=== PATIENT | male | born 1990 | race Caucasian/White ===

== ENCOUNTER 2018-08-12 18:52 | Emergency (ER) | payer OTHER ==
[~2018-08-12] VITALS: Ht 175.3 cm; Wt 108.0 kg
[~2018-08-12 18:52] MED LIST: AUGMENTIN875TAB PO; NAPROSYN500 MG OR; NO; NO MEDS; ULTRAM50 M1 OR
--- NOTE | 2018-08-12 19:30 | NUR ---
BREATHING TREATMENT GIVEN. BREATHING TECH. FOR GOOD DEPOSITION TO THE LUNGS.
[2018-08-12] MEDS ORDERED: MEDDOSEPAK PO (20:43)
[2018-08-12] MEDS ORDERED: TESSALON PER100 MG PO (20:43)
[2018-08-12 20:48] VITALS: BP 113/57
== END 2018-08-12 20:48 | disposition home or self-care (01) | DRG 204 ==
LOC: ED 18:52
DX: R05 Cough (principal)

== ENCOUNTER 2019-03-03 16:18 | Emergency (ER) | payer OTHER ==
[~2019-03-03] VITALS: Ht 172.7 cm; Wt 109.1 kg
[~2019-03-03 16:18] MED LIST changes: +MEDDOSEPAK PO; +TESSALON PER100 MG PO
[2019-03-03 17:01] LABS: HEMATOCRIT 47.2 % (39.0-50.0); HEMOGLOBIN 16.3 g/dl (14.0-18.0); IMMATURE GRANULOCYTES 0.3 % (0.0-5.0); MEAN CELL VOLUME 84.7 fL CALC (80.0-100.0); MEAN CORPUSCULAR HGB 29.3 pG CALC (26.0-32.0); MEAN CORPUSCULAR HGB CONC 34.5 g/L CALC (32.0-36.0); NEUT# 4.58 thou/uL (1.82-7.42); RED BLOOD COUNT 5.57 mill/uL (4.70-6.10); RED CELL DISTRI WIDTH 11.9 % (11.5-15.5)
[2019-03-03 17:15] LABS: ALBUMIN 5.1 g/dL (3.2-5.0); ALKALINE PHOSPHATASE 82 u/l (38-126); BUN 14 mg/dL (9-20); BUN/CREATININE RATIO 14 (12-20 (CALC)); CARBON DIOXIDE 23 mmol/l (22-30); CHLORIDE 105 mmol/l (95-108); GFR > 60 ML/MIN (>=60 (CALC)); GFR FOR AFR.AMER. > 60 ML/MIN (>=60 (CALC)); LIPASE 278 u/l (23-300); SODIUM 140 mmol/l (137-146); TOTAL PROTEIN 8.4 g/dL (6.3-8.2)
[2019-03-03 17:16] LABS: ANION GAP 17 (6-22 (CALC)); BILIRUBIN, TOTAL 0.7 mg/dL (0.0-1.4); POTASSIUM 4.8 mmol/l (3.5-5.1); SGOT/AST 100 u/l (17-59)
[2019-03-03 19:13] LABS: URINE BILIRUBIN - DIPSTICK NEGATIVE (NEGATIVE); URINE BLOOD DIPSTICK NEGATIVE (NEGATIVE); URINE COLOR YELLOW; URINE GLUCOSE - DIPSTICK NEGATIVE (NEGATIVE); URINE KETONE 40 mg/dL (NEGATIVE); URINE LEUK ESTERASE NEGATIVE (NEGATIVE); URINE NITRITE - DIPSTICK NEGATIVE (Negative); URINE PH 5.5 (4.5-8.0); URINE PROTEIN - DIPSTICK NEGATIVE (NEG-TRACE); URINE SPECIFIC GRAVITY >=1.030; URINE UROBILINOGEN - DIPSTICK 0.2 E.U./dL (0.2)
[2019-03-03 19:15] LABS: BARBITURATES NEGATIVE (NEGATIVE); COCAINE NEGATIVE (NEGATIVE); METHADONE NEGATIVE (NEGATIVE); OXCYCODONE NEGATIVE (NEGATIVE); TETRAHYDROCANNABIONOL POSITIVE (NEGATIVE); TRICYLIC ANTIDEPRESSANTS NEGATIVE (NEGATIVE)
[2019-03-03 19:38] VITALS: BP 137/73
[2019-03-03] MEDS ORDERED: REGLAN10 MG PO (19:44)
== END 2019-03-03 19:51 | disposition home or self-care (01) | DRG 392 ==
LOC: ED 16:18
DX: R11.0 Nausea (principal); R10.11 Right upper quadrant pain; R10.31 Right lower quadrant pain; R10.32 Left lower quadrant pain; R19.7 Diarrhea, unspecified

== ENCOUNTER 2019-05-16 12:11 | Emergency (ER) | payer OTHER ==
[~2019-05-16] VITALS: Ht 172.7 cm; Wt 97.0 kg
[~2019-05-16 12:11] MED LIST changes: +REGLAN10 MG PO
[2019-05-16] MEDS ORDERED: OMEPRAZOLE10 MG PO (12:46)
[2019-05-16 12:47] LABS: HEMATOCRIT 44.6 % (39.0-50.0); HEMOGLOBIN 15.4 g/dl (14.0-18.0); IMMATURE GRANULOCYTES 0.4 % (0.0-5.0); MEAN CELL VOLUME 86.8 fL CALC (80.0-100.0); MEAN CORPUSCULAR HGB CONC 34.5 g/L CALC (32.0-36.0); NEUT# 5.09 thou/uL (1.82-7.42); RED BLOOD COUNT 5.14 mill/uL (4.70-6.10)
[2019-05-16] MEDS ORDERED: DICYCLOMINE HCL20 MG PO (12:48)
[2019-05-16 13:00] LABS: ALBUMIN 4.4 g/dL (3.2-5.0); ALKALINE PHOSPHATASE 76 u/l (38-126); ANION GAP 13 (6-22 (CALC)); BILIRUBIN, TOTAL 0.6 mg/dL (0.0-1.4); BUN 13 mg/dL (9-20); BUN/CREATININE RATIO 13 (12-20 (CALC)); CARBON DIOXIDE 26 mmol/l (22-30); CHLORIDE 103 mmol/l (95-108); GFR > 60 ML/MIN (>=60 (CALC)); GFR FOR AFR.AMER. > 60 ML/MIN (>=60 (CALC)); LIPASE 136 u/l (23-300); POTASSIUM 4.1 mmol/l (3.5-5.1); SGOT/AST 28 u/l (17-59); SODIUM 138 mmol/l (137-146); TOTAL PROTEIN 7.5 g/dL (6.3-8.2)
[2019-05-16 13:08] LABS: URINE BILIRUBIN - DIPSTICK NEGATIVE (NEGATIVE); URINE BLOOD DIPSTICK NEGATIVE (NEGATIVE); URINE COLOR YELLOW; URINE GLUCOSE - DIPSTICK NEGATIVE (NEGATIVE); URINE KETONE NEGATIVE (NEGATIVE); URINE LEUK ESTERASE NEGATIVE (NEGATIVE); URINE NITRITE - DIPSTICK NEGATIVE (Negative); URINE PH 5.5 (4.5-8.0); URINE PROTEIN - DIPSTICK NEGATIVE (NEG-TRACE); URINE UROBILINOGEN - DIPSTICK 0.2 E.U./dL (0.2)
[2019-05-16 13:23] LABS: BARBITURATES NEGATIVE (NEGATIVE); COCAINE NEGATIVE (NEGATIVE); METHADONE NEGATIVE (NEGATIVE); OXCYCODONE NEGATIVE (NEGATIVE); TETRAHYDROCANNABIONOL NEGATIVE (NEGATIVE); TRICYLIC ANTIDEPRESSANTS NEGATIVE (NEGATIVE)
[2019-05-16] MEDS ORDERED: AMOXICILLIN500 M2 PO (13:24)
[2019-05-16 13:34] VITALS: BP 133/77
== END 2019-05-16 13:36 | disposition home or self-care (01) | DRG 153 ==
LOC: ED 12:11
DX: J02.0 Streptococcal pharyngitis (principal); R10.32 Left lower quadrant pain; R10.11 Right upper quadrant pain

== ENCOUNTER 2021-01-25 00:20 | Emergency (ER) | payer SELFPAY ==
[~2021-01-25 00:20] MED LIST changes: +AMOXICILLIN500 M2 PO; +DICYCLOMINE HCL20 MG PO; +OMEPRAZOLE10 MG PO
== END 2021-01-25 02:07 | disposition left against medical advice (07) | DRG 951 ==
LOC: ED 00:20 → LWOBS 00:46
DX: Z53.21 Procedure and treatment not carried out due to patient leaving prior to being seen by health care provider (principal)

== ENCOUNTER 2021-01-26 13:12 | Observation (INO) | payer OTHER ==
[~2021-01-26] VITALS: Ht 170.2 cm; Wt 88.0 kg
--- NOTE | 2021-01-26 13:30 | NUR ---
PATIENT TO ROOM VIA WHEELCHAIR AND PHYSICIAN NOTIFIED OF PATIENT STATUS
[2021-01-26 14:12] LABS: IMMATURE GRANULOCYTES 0.7 % (0.0-5.0); MEAN CELL VOLUME 88.3 fL CALC (80.0-100.0); MEAN CORPUSCULAR HGB 30.6 pG CALC (26.0-32.0); MEAN CORPUSCULAR HGB CONC 34.6 g/dL CAL (32.0-36.0); NEUT# 6.28 thou/uL (1.82-7.42); RED BLOOD COUNT 5.99 mill/uL (4.70-6.10); RED CELL DISTRI WIDTH 11.7 % (11.5-15.5)
[2021-01-26 14:13] LABS: HEMATOCRIT 52.9 % (39.0-50.0); HEMOGLOBIN 18.3 g/dl (14.0-18.0)
[2021-01-26 14:22] LABS: ALBUMIN 5.1 g/dL (3.2-5.0); ALKALINE PHOSPHATASE 92 u/l (38-126); ANION GAP 23 (6-22 (CALC)); BILIRUBIN, TOTAL 0.8 mg/dL (0.0-1.4); BUN 18 mg/dL (9-20); BUN/CREATININE RATIO 15 (12-20 (CALC)); CARBON DIOXIDE 22 mmol/l (22-30); CHLORIDE 98 mmol/l (95-108); CREATININE 1.2 mg/dL (0.7-1.3); GFR > 60 ML/MIN (>=60 (CALC)); GFR FOR AFR.AMER. > 60 ML/MIN (>=60 (CALC)); LIPASE 137 u/l (23-300); POTASSIUM 3.7 mmol/l (3.5-5.1); SGOT/AST 160 u/l (17-59); SODIUM 139 mmol/l (137-146); TOTAL PROTEIN 9.1 g/dL (6.3-8.2)
--- NOTE | 2021-01-26 15:03 | NUR ---
PT MEDICATED FOR CONTINUED N/V
[2021-01-26 17:02] LABS: BILIRUBIN, TOTAL 0.8 mg/dL (0.0-1.4); TOTAL PROTEIN 9.3 g/dL (6.3-8.2)
--- NOTE | 2021-01-26 20:49 | NUR ---
REPORT CALLED TO [facility]
--- NOTE | 2021-01-26 21:32 | NUR ---
TO FLOOR VIA STRETCHER/POCKET MONITOR. MASKED.
[2021-01-26 21:40] VITALS: BP 160/88
--- NOTE | 2021-01-26 21:40 | NUR ---
pATIENT ARRIVED TO UNIT. VITALS TAKEN AND RECOREDED, PARIENT AMBULATING AND REQUESTING WATER
[2021-01-26 23:30] VITALS: BP 132/87
[2021-01-27 00:45] LABS: URINE BILIRUBIN - DIPSTICK NEGATIVE (NEGATIVE); URINE BLOOD DIPSTICK NEGATIVE (NEGATIVE); URINE COLOR YELLOW; URINE GLUCOSE - DIPSTICK 100 mg/dL (NEGATIVE); URINE KETONE 40 mg/dL (NEGATIVE); URINE LEUK ESTERASE NEGATIVE (NEGATIVE); URINE NITRITE - DIPSTICK NEGATIVE (Negative); URINE PROTEIN - DIPSTICK TRACE mg/dL (NEG-TRACE)
[2021-01-27 04:27] VITALS: BP 134/81
[2021-01-27 05:37] LABS: IMMATURE GRANULOCYTES 0.4 % (0.0-5.0); MEAN CELL VOLUME 89.5 fL CALC (80.0-100.0); MEAN CORPUSCULAR HGB 30.8 pG CALC (26.0-32.0); MEAN CORPUSCULAR HGB CONC 34.4 g/dL CAL (32.0-36.0); NEUT# 3.02 thou/uL (1.82-7.42); RED BLOOD COUNT 5.23 mill/uL (4.70-6.10); RED CELL DISTRI WIDTH 11.8 % (11.5-15.5)
[2021-01-27 05:41] LABS: HEMATOCRIT 46.8 % (39.0-50.0); HEMOGLOBIN 16.1 g/dl (14.0-18.0)
[2021-01-27 06:05] LABS: ALBUMIN 4.1 g/dL (3.2-5.0); ALKALINE PHOSPHATASE 65 u/l (38-126); BILIRUBIN, TOTAL 0.5 mg/dL (0.0-1.4); BUN 13 mg/dL (9-20); BUN/CREATININE RATIO 13 (12-20 (CALC)); C-REACTIVE PROTEIN 1.1 mg/dL (0-0.9); CHLORIDE 101 mmol/l (95-108); GFR > 60 ML/MIN (>=60 (CALC)); GFR FOR AFR.AMER. > 60 ML/MIN (>=60 (CALC)); POTASSIUM 3.8 mmol/l (3.5-5.1); SGOT/AST 74 u/l (17-59); SODIUM 138 mmol/l (137-146)
[2021-01-27 06:15] LABS: ANION GAP 14 (6-22 (CALC)); CARBON DIOXIDE 27 mmol/l (22-30); TOTAL PROTEIN 7.1 g/dL (6.3-8.2)
[2021-01-27 08:16] VITALS: BP 146/99
--- NOTE | 2021-01-27 08:16 | NUR ---
PATIENT IS SITTING IN THE COUCH. ASSESSMENT DONE. PATIENT IS ALERT AND ORIENT X3. PATIENT STATED HE FEELS BETTER TODAY. TELE IN PLACE. RESPS EVEN AND UNLABORED. PATIENT IN ROOM AIR AND O2 READING 97%. PATIENT DENIES ANY SOB. DYEING MACHINE BACK TENDER SETUP PATIENT FOR A SHOWER. ICE CHIPS AND APPLE JUICE PROVIDED PER PATIENT REQUEST. PATIENT DENIES ANY OTHER NEEDS AT THIS TIME. CALL LIGHT IN REACH.
[2021-01-27 10:50] VITALS: BP 128/81
--- NOTE | 2021-01-27 12:05 | NUR ---
PATIENT IS RESTING IN BED WITH NO DISTRESS NOTED. PATIENT STATED THAT THE ZOFRAN HELPED HIM. TELE IN PLACE. PATIENT DENIES SOB. CALL LIGHT IN REACH.
[2021-01-27 15:00] VITALS: BP 140/88
--- NOTE | 2021-01-27 16:33 | NUR ---
PATIENT IS RESTING IN BED WITH NO DISTRESS NOTED. PATIENT STATED HE HAD VERY SMALL BM YESTERDAY AND NONE TODAY. PATIENT REFUSED THE MILK OF MAG. PATIIENT DENIES ANY OTHER NEEDS AT THIS TIME. CALL LIGHT IN REACH.
[2021-01-27 18:51] VITALS: BP 163/58
--- NOTE | 2021-01-27 20:00 | NUR ---
PATIENT RESTING IN BED AT THIS TIME. AWAKE ALERT AND ORIENTEDX3. PATIENT ON ISOLATION FOR COVID. TELE MONITOR LAST READING SR-64. IVF NS PATENT AND INFUSING VIA RAC AT 125CC/HR. SITE IS HEALTHY AT THIS TIME. RESPS ARE EVEN AND UNLABORED AT THIS TIME. O2 SAT IS 98% ON RA. LUNGS ARE CLEAR. NO COUGH NOTED. ABD IS SOFT WITH BS+. PATIENT INSTRUCTED THAT WE DO NEED STOOL SPEC IF HE IS ABLE TO PROVIDE. DENIES ANY DIFFICULTY VOIDING. ENCOURAGED PRONING WHEN POSSIBLE. SAFETY PRECAUTIONS REINFORCED. CALL LIGHT IN REACH, WILL CONT TO MONITOR.
--- NOTE | 2021-01-27 22:00 | NUR ---
PATIENT RESTING IN BED AT THIS TIME. PATIENT DID TAKE SHOWER. IVF NS PATENT AND INFUSING VIA RAC SITE ORDERED AT 125CC/HR. SITE IS HEALTHY WITH GOOD BLOOD RETURN. TELE REAPPLIED AFTER SHOWER. MEDICATED FOR SLEEP WITH SONATA 5MG PO AND FOR ABD PAIN WITH BENTYL. CALL LIGHT IN REACH. WILL CONT TO MONITOR.
[2021-01-28] VITALS: BP 148/90
--- NOTE | 2021-01-28 01:00 | NUR ---
PATIENT FOUND PRONING IN BED. IVF NS PATENT AND INFUSING AT 125CC/HR VIA RAC SITE. PATIENT ASKING FOR ANOTHER SLEEPING PILL AND SOMETHING ELSE FOR PAIN. EXPLAINED THAT HE ALREADY HAD SLEEPING MED AND MEDICATION FOR PAIN. REMAINS ON ISOLATION. PATIENT IS VERY RESTLESS TONIGHT. CALL LIGHT IN REACH. WILL CONT TO MONITOR.
[2021-01-28 04:26] VITALS: BP 137/87
--- NOTE | 2021-01-28 04:49 | NUR ---
PATIENT RESTING IN BED AT THIS TIME-APPEARS SLEEPING AT THIS TIME WITH EYES CLOSED. RESPS ARE EVEN AND UNLABORED. IVF PATENT AND INFUSING VIA RAC SITE AT 125CC/HR. CALL LIGHT IN REACH. WILL CONT TO MONITOR.
[2021-01-28 05:52] LABS: HEMATOCRIT 43.8 % (39.0-50.0); HEMOGLOBIN 14.8 g/dl (14.0-18.0); MEAN CELL VOLUME 90.3 fL CALC (80.0-100.0); MEAN CORPUSCULAR HGB 30.5 pG CALC (26.0-32.0); MEAN CORPUSCULAR HGB CONC 33.8 g/dL CAL (32.0-36.0); NEUT# 2.46 thou/uL (1.82-7.42); RED BLOOD COUNT 4.85 mill/uL (4.70-6.10); RED CELL DISTRI WIDTH 11.7 % (11.5-15.5)
[2021-01-28 06:14] LABS: ALBUMIN 3.8 g/dL (3.2-5.0); ALKALINE PHOSPHATASE 60 u/l (38-126); ANION GAP 12 (6-22 (CALC)); BILIRUBIN, TOTAL 0.6 mg/dL (0.0-1.4); BUN 11 mg/dL (9-20); BUN/CREATININE RATIO 10 (12-20 (CALC)); C-REACTIVE PROTEIN 0.8 mg/dL (0-0.9); CARBON DIOXIDE 31 mmol/l (22-30); CHLORIDE 102 mmol/l (95-108); GFR > 60 ML/MIN (>=60 (CALC)); GFR FOR AFR.AMER. > 60 ML/MIN (>=60 (CALC)); POTASSIUM 4.2 mmol/l (3.5-5.1); SGOT/AST 46 u/l (17-59); SODIUM 140 mmol/l (137-146); TOTAL PROTEIN 6.9 g/dL (6.3-8.2)
--- NOTE | 2021-01-28 07:00 | NUR ---
REPORT FROM PALMA CRUZ. ASSUMED PT CARE.
[2021-01-28 08:16] VITALS: BP 130/87
--- NOTE | 2021-01-28 08:16 | NUR ---
PT NOTED RESTING IN BED WITH EYES CLOSED. WAKES EASILY. NO APPARENT DISTRESS NOTED. RESPIRATIONS EVEN AND UNLABORED ON RA. IV SITE APPEARS HEALTHY WITH IVF INFUSING. PHYSICAL FITNESS TRAINER IN PLACE. PT DENIES ANY DISCOMFORT OR SOB. DISCUSSED POC. PT VERBALIZED UNDERSTANDING. NO CURRENT WANTS OR NEEDS. CALL LIGHT WITHIN REACH. WILL CONTINUE TO MONITOR.
[2021-01-28 10:30] VITALS: BP 156/102
--- NOTE | 2021-01-28 10:54 | NUR ---
STOOL SAMPLE OBTAINED AND SENT TO LAB.
--- NOTE | 2021-01-28 11:53 | NUR ---
PHYSICIAN AT BEDSIDE.
[2021-01-28] MEDS ORDERED: ZOFRAN4 MG/TAB PO (13:02)
[2021-01-28] MEDS ORDERED: AZITHROMYCIN500 MG PO (13:03)
--- NOTE | 2021-01-28 13:30 | NUR ---
IV site discontinued, cath intact. No edema , no redness, voices no discomfort. Discharge instructions given. Patient verbalizes understanding of same. Discharged in stable condition via Ambulatory to Home. All belongings sent with pt.
== END 2021-01-28 13:30 | disposition home or self-care (01) | DRG 179 ==
LOC: ED 13:12 → ED-I 17:42 → ED 18:41 → MS2 18:41
PROVIDERS: Emergency Medicine; Nurse Practitioner; ADMIT Internal Medicine; ATTEND Internal Medicine
DX: U07.1 COVID-19 (principal); E86.0 Dehydration; K21.9 Gastro-esophageal reflux disease without esophagitis; I10 Essential (primary) hypertension
CPT/HCPCS: G0378; J1650; Q9967; S0164

== ENCOUNTER 2021-01-30 19:15 | Emergency (ER) | payer OTHER ==
[~2021-01-30] VITALS: Ht 170.2 cm; Wt 86.0 kg
[~2021-01-30 19:15] MED LIST changes: +AZITHROMYCIN500 MG PO; +ZOFRAN4 MG/TAB PO
[2021-01-30 20:24] LABS: HEMATOCRIT 45.1 % (39.0-50.0); HEMOGLOBIN 16.2 g/dl (14.0-18.0); IMMATURE GRANULOCYTES 0.1 % (0.0-5.0); MEAN CELL VOLUME 86.1 fL CALC (80.0-100.0); MEAN CORPUSCULAR HGB 30.9 pG CALC (26.0-32.0); MEAN CORPUSCULAR HGB CONC 35.9 g/dL CAL (32.0-36.0); NEUT# 5.77 thou/uL (1.82-7.42); RED BLOOD COUNT 5.24 mill/uL (4.70-6.10); RED CELL DISTRI WIDTH 11.5 % (11.5-15.5)
[2021-01-30 20:42] LABS: ALBUMIN 4.7 g/dL (3.2-5.0); ALKALINE PHOSPHATASE 77 u/l (38-126); AMYLASE 74 u/l (30-110); ANION GAP 17 (6-22 (CALC)); BILIRUBIN, TOTAL 0.8 mg/dL (0.0-1.4); BUN 13 mg/dL (9-20); BUN/CREATININE RATIO 13 (12-20 (CALC)); CARBON DIOXIDE 25 mmol/l (22-30); CHLORIDE 100 mmol/l (95-108); GFR > 60 ML/MIN (>=60 (CALC)); GFR FOR AFR.AMER. > 60 ML/MIN (>=60 (CALC)); LIPASE 201 u/l (23-300); POTASSIUM 3.2 mmol/l (3.5-5.1); SGOT/AST 37 u/l (17-59); SODIUM 139 mmol/l (137-146)
[2021-01-31 03:03] LABS: URINE BILIRUBIN - DIPSTICK NEGATIVE (NEGATIVE); URINE BLOOD DIPSTICK NEGATIVE (NEGATIVE); URINE COLOR YELLOW; URINE GLUCOSE - DIPSTICK NEGATIVE (NEGATIVE); URINE KETONE >=80 mg/dL (NEGATIVE); URINE LEUK ESTERASE NEGATIVE (NEGATIVE); URINE PH 6.5 (4.5-8.0); URINE PROTEIN - DIPSTICK NEGATIVE (NEG-TRACE); URINE SPECIFIC GRAVITY 1.015; URINE UROBILINOGEN - DIPSTICK 0.2 E.U./dL (0.2)
[2021-01-31 03:08] LABS: URINE NITRITE - DIPSTICK NEGATIVE (Negative)
[2021-01-31 03:25] VITALS: BP 162/92
[2021-01-31] MEDS ORDERED: PROTONIX40 MG PO (03:28)
[2021-01-31] MEDS ORDERED: PHENERGAN25 MG RE (03:28)
== END 2021-01-31 03:50 | disposition home or self-care (01) | DRG 391 ==
LOC: ED 19:15
PROVIDERS: Emergency Medicine
DX: R11.2 Nausea with vomiting, unspecified (principal); R10.84 Generalized abdominal pain; U07.1 COVID-19; I10 Essential (primary) hypertension; F17.200 Nicotine dependence, unspecified, uncomplicated
CPT/HCPCS: Q9967; S0164

== ENCOUNTER 2021-03-09 07:47 | Emergency (ER) | payer OTHER ==
[~2021-03-09] VITALS: Ht 170.2 cm; Wt 85.0 kg
[~2021-03-09 07:47] MED LIST changes: +PHENERGAN25 MG RE; +PROTONIX40 MG PO
[2021-03-09 08:49] LABS: HEMATOCRIT 45.6 % (39.0-50.0); HEMOGLOBIN 15.5 g/dl (14.0-18.0); IMMATURE GRANULOCYTES 0.3 % (0.0-5.0); MEAN CELL VOLUME 90.5 fL CALC (80.0-100.0); MEAN CORPUSCULAR HGB 30.8 pG CALC (26.0-32.0); NEUT# 4.52 thou/uL (1.82-7.42); RED BLOOD COUNT 5.04 mill/uL (4.70-6.10); RED CELL DISTRI WIDTH 12.5 % (11.5-15.5)
[2021-03-09 09:13] LABS: ALBUMIN 4.7 g/dL (3.2-5.0); ALKALINE PHOSPHATASE 76 u/l (38-126); ANION GAP 19 (6-22 (CALC)); BUN 14 mg/dL (9-20); BUN/CREATININE RATIO 15 (12-20 (CALC)); CARBON DIOXIDE 21 mmol/l (22-30); CHLORIDE 103 mmol/l (95-108); GFR > 60 ML/MIN (>=60 (CALC)); GFR FOR AFR.AMER. > 60 ML/MIN (>=60 (CALC)); LIPASE 268 u/l (23-300); POTASSIUM 3.7 mmol/l (3.5-5.1); SGOT/AST 32 u/l (17-59); SODIUM 139 mmol/l (137-146)
[2021-03-09 09:30] LABS: BILIRUBIN, TOTAL 0.4 mg/dL (0.0-1.4)
[2021-03-09 10:20] LABS: URINE BILIRUBIN - DIPSTICK NEGATIVE (NEGATIVE); URINE BLOOD DIPSTICK NEGATIVE (NEGATIVE); URINE COLOR YELLOW; URINE GLUCOSE - DIPSTICK NEGATIVE (NEGATIVE); URINE KETONE NEGATIVE (NEGATIVE); URINE LEUK ESTERASE NEGATIVE (NEGATIVE); URINE PH 6.5 (4.5-8.0); URINE PROTEIN - DIPSTICK NEGATIVE (NEG-TRACE); URINE UROBILINOGEN - DIPSTICK 0.2 E.U./dL (0.2)
[2021-03-09 10:24] LABS: URINE NITRITE - DIPSTICK NEGATIVE (Negative)
[2021-03-09] MEDS ORDERED: ZOFRAN4 M1 PO (11:02)
[2021-03-09] MEDS ORDERED: HYDROCO/APAP1 TA9 PO (11:02)
[2021-03-09 11:40] VITALS: BP 145/74
== END 2021-03-09 11:47 | disposition home or self-care (01) | DRG 730 ==
LOC: ED 07:47
PROVIDERS: Family Medicine
DX: N43.3 Hydrocele, unspecified (principal); I10 Essential (primary) hypertension; Z86.16 Personal history of COVID-19; Z87.891 Personal history of nicotine dependence; Z20.822 Contact with and (suspected) exposure to COVID-19
CPT/HCPCS: Q9967

== ENCOUNTER 2022-10-04 16:38 | Emergency (ER) | payer SELFPAY ==
[~2022-10-04] VITALS: Ht 170.2 cm; Wt 97.8 kg
[~2022-10-04 16:38] MED LIST changes: +HYDROCO/APAP1 TA9 PO; +ZOFRAN4 M1 PO
[2022-10-04 17:30] VITALS: BP 134/79
[2022-10-04 17:45] VITALS: BP 123/71
[2022-10-04 18:21] LABS: BASO% 0.1 % (0-3); EOS% 0.1 % (0-8); HEMATOCRIT 42.1 % (39.0-50.0); IMMATURE GRANULOCYTES 0.3 % (0.0-5.0); MEAN CELL VOLUME 89.2 fL CALC (80.0-100.0); MEAN CORPUSCULAR HGB 29.7 pG CALC (26.0-32.0); MEAN CORPUSCULAR HGB CONC 33.3 g/dL CAL (32.0-36.0); MONO% 15.4 % (2-13); NEUT# 5.4 thou/uL (1.82-7.42); NEUT% 81.1 % (42-76); RED BLOOD COUNT 4.72 mill/uL (4.70-6.10); RED CELL DISTRI WIDTH 11.9 % (11.5-15.5)
[2022-10-04 18:33] LABS: ALBUMIN 4.6 g/dL (3.2-5.0); ALKALINE PHOSPHATASE 70 u/l (38-126); ANION GAP 14 (6-22 (CALC)); BILIRUBIN, TOTAL 0.4 mg/dL (0.2-1.3); BUN 14 mg/dL (9-20); BUN/CREATININE RATIO 13 (12-20 (CALC)); CARBON DIOXIDE 24 mmol/l (22-30); CHLORIDE 102 mmol/l (95-108); CREATININE 1.1 mg/dL (0.7-1.3); GFR FOR AFR.AMER. > 60 ML/MIN (>=60 (CALC)); GFR OTHER RACES > 60 ML/MIN (>=60 (CALC)); POTASSIUM 4.1 mmol/l (3.5-5.1); SGOT/AST 38 u/l (17-59); SODIUM 135 mmol/l (137-146); TOTAL PROTEIN 7.7 g/dL (6.3-8.2)
[2022-10-04] MEDS ORDERED: ONDANSETRON4 MG PO (20:05)
[2022-10-04] MEDS ORDERED: PREDNISONE20 MG PO (20:05)
[2022-10-04] MEDS ORDERED: NAPROXEN500 MG PO (20:05)
[2022-10-04 20:18] VITALS: BP 123/71
== END 2022-10-04 20:38 | disposition home or self-care (01) | DRG 179 ==
LOC: ED 16:38
PROVIDERS: Nurse Practitioner
DX: U07.1 COVID-19 (principal); R11.2 Nausea with vomiting, unspecified; I10 Essential (primary) hypertension; Z86.16 Personal history of COVID-19; F17.210 Nicotine dependence, cigarettes, uncomplicated

== ENCOUNTER 2023-03-15 18:23 | Emergency (ER) | payer SELFPAY ==
[2023-03-15] VITALS (9 sets, daily range): BP systolic 113–133; BP diastolic 65–93
[~2023-03-15] VITALS: Ht 170.2 cm; Wt 90.7 kg
[~2023-03-15 18:23] MED LIST changes: +NAPROXEN500 MG PO; +ONDANSETRON4 MG PO; +PREDNISONE20 MG PO
[2023-03-15 19:10] LABS: BASO% 0.5 % (0-3); HEMATOCRIT 42.6 % (39.0-50.0); HEMOGLOBIN 14.6 g/dl (14.0-18.0); IMMATURE GRANULOCYTES 0.1 % (0.0-5.0); LYMPH% 26.1 % (15-41); MEAN CELL VOLUME 88.4 fL CALC (80.0-100.0); MEAN CORPUSCULAR HGB 30.3 pG CALC (26.0-32.0); MEAN CORPUSCULAR HGB CONC 34.3 g/dL CAL (32.0-36.0); MONO% 9.7 % (2-13); NEUT# 4.59 thou/uL (1.82-7.42); NEUT% 61.6 % (42-76); RED BLOOD COUNT 4.82 mill/uL (4.70-6.10); RED CELL DISTRI WIDTH 11.7 % (11.5-15.5)
[2023-03-15 19:22] LABS: ALBUMIN 4.3 g/dL (3.2-5.0); ALKALINE PHOSPHATASE 74 u/l (38-126); ANION GAP 12 (6-22 (CALC)); BILIRUBIN, TOTAL 0.5 mg/dL (0.2-1.3); BUN 20 mg/dL (9-20); BUN/CREATININE RATIO 17 (12-20 (CALC)); CARBON DIOXIDE 25 mmol/l (22-30); CHLORIDE 105 mmol/l (95-108); CREATININE 1.2 mg/dL (0.7-1.3); GFR FOR AFR.AMER. > 60 ML/MIN (>=60 (CALC)); GFR OTHER RACES > 60 ML/MIN (>=60 (CALC)); POTASSIUM 3.9 mmol/l (3.5-5.1); SGOT/AST 36 u/l (17-59); SODIUM 138 mmol/l (137-146); TOTAL PROTEIN 7.6 g/dL (6.3-8.2)
[2023-03-15] MEDS ORDERED: XANAX0.25 MG PO (20:10)
== END 2023-03-15 20:39 | disposition home or self-care (01) | DRG 313 ==
LOC: ED 18:23
PROVIDERS: Nurse Practitioner
DX: R07.89 Other chest pain (principal); F41.9 Anxiety disorder, unspecified; I10 Essential (primary) hypertension; F17.200 Nicotine dependence, unspecified, uncomplicated; Z86.16 Personal history of COVID-19

== ENCOUNTER 2024-04-24 21:54 | Emergency (ER) | payer SELFPAY ==
[~2024-04-24 21:54] MED LIST changes: +OMEPRAZOLE DR40 MG PO; +XANAX0.25 MG PO
== END 2024-04-24 22:22 | disposition left against medical advice (07) | DRG 951 ==
LOC: ED 21:54 → LWOBS 22:22
DX: Z53.21 Procedure and treatment not carried out due to patient leaving prior to being seen by health care provider (principal)